=== PATIENT | male | born 1960 | race African-American/Black ===

== ENCOUNTER → 2019-01-31 | Outpatient (CLI) | payer OTHER ==
[~2019-01-31] MED LIST: AMLODIPINE BESYL5 MG PO; ASPIR 8181 MG PO; GARLIC1 EAC1 PO; JANUVIA100 MG PO; LEVOTHYROXINE50 MCG PO; LOSARTAN POTAS100 MG PO; LYRICA50 MG PO; MULTIVITAMINS1 EAC7 PO; ULTRAM 50MG50 MG PO
--- NOTE | 2019-01-31 09:46 | Diagnostic Imaging Report ---
TECHNIQUE: Magnetic resonance imaging of the RIGHT KNEE was performed WITHOUT injected contrast. Motion artifact partially limits sensitivity and specificity of the exam. HISTORY: SPRAIN LATERAL COLLATERAL LIGAMENT , fell, pain, query sprain of lateral collateral ligament COMPARISON: None available. FINDINGS: LIGAMENTS AND TENDONS: ACL: Intact PCL: Intact Collateral ligaments: The medial collateral ligament is intact. Focal increased intrasubstance signal the proximal fibular collateral ligament near the femoral insertion. Iliotibial band: Unremarkable Popliteal tendon: Intact Extensor mechanism: Intact JOINT: Menisci: Medial: Increased intrasubstance degenerative signal of the posterior horn, without a discrete tear extending to an articular surface. Lateral: Severe complex tearing and attenuation of the anterior horn, no normal anterior horn tissue is visible. Marked peripheral extrusion of the body. Diffuse intrasubstance and free margin degenerative tearing of the residual body and posterior horn. Articular Cartilage: Medial Compartment: No focal defect. Lateral Compartment: Full-thickness erosions of the posterior weightbearing cartilage. Patellofemoral Compartment: High-grade to full-thickness erosions of the lateral patellar facet and lateral trochlea. Joint Fluid: Severe synovitis with a moderate nonspecific joint effusion. BONES: No focal or infiltrative bone marrow replacing abnormality. No acute fracture. Reactive subchondral bone marrow edema, most notably adjacent to the lateral compartment. SOFT TISSUES: A 1.5 cm (AP) x 1 cm (ML) x 2.2 cm (CC) lateral popliteal cyst containing numerous subcentimeter ossified bodies. IMPRESSION: 1. 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 Acute on chronic tearing is possible given the provided history. 2. Severe synovitis with associated moderate effusion and popliteal cyst containing multiple ossified bodies migrated from the joint. 3. Mild sprain versus scarring of the proximal fibular collateral ligament. Signed by: Dr. Jovanny Yuen D.O., M.M.M. on 01/31/2019 9:43 AM
== END ==
LOC: MRI 07:40
PROVIDERS: ATTEND Family Medicine
DX: S83.421A Sprain of lateral collateral ligament of right knee, initial encounter (principal)

== ENCOUNTER → 2021-09-15 | Outpatient (CLI) | payer OTHER | LOC: NM 08:42 | PROVIDERS: ATTEND Urology | DX: C61 Malignant neoplasm of prostate (principal) | CPT/HCPCS: 78306; A9503 ==

== ENCOUNTER 2021-11-25 10:39 | Inpatient (IN) | payer OTHER ==
[2021-11-23 12:06] LABS: BASOPHILS % 0.7 % (0.0-1.0); EOSINOPHILS # (AUTO) 0.1 (0.0-0.4); EOSINOPHILS % 1.2 % (0.0-6.0); HEMATOCRIT 44.4 % (38.2-49.6); HEMOGLOBIN 14.1 g/dL (14.0-18.0); LYMPHOCYTES # (AUTO) 1.6 (1.0-3.2); MEAN CORPUSCULAR HEMOGLOBIN 27.9 pg (28-32); MEAN CORPUSCULAR HGB CONC 31.8 g/dL (31-35); MEAN CORPUSCULAR VOLUME 87.7 fL (81-99); MONOCYTES # (AUTO) 0.6 (0.2-0.8); MONOCYTES % 10.8 % (4.4-11.3); NEUTROPHILS # (AUTO) 3.3 (2.1-6.9); NEUTROPHILS % 58.4 % (38.7-80.0); PLATELET COUNT 184 x10e3/uL (140-360); RED BLOOD COUNT 5.06 x10e6/uL (4.3-5.7)
[2021-11-23 12:24] LABS: ANION GAP 13.1 mmol/L (8-16); CALCIUM 9.2 mg/dL (8.4-10.2); CREATININE, SERUM 1.53 mg/dL (0.72-1.25); POTASSIUM 4.1 mmol/L (3.5-5.1)
[~2021-11-25] VITALS: Ht 200.7 cm; Wt 106.1 kg
[2021-11-25] MEDS ORDERED: SODIUM CHLORIDE 0.9% 50ML 100 ML ONE (10:44)
[2021-11-25] MEDS ORDERED: NOVOLOG100 UNIT/1 SC (10:49)
[2021-11-25] MEDS ORDERED: TRESIBA FL100 UNIT/1 SC (10:49)
[2021-11-25] MEDS ORDERED: LOSARTAN POTASS25 MG PO (10:50)
[2021-11-25] MEDS ORDERED: CRESTOR10 MG PO (10:50)
[2021-11-25] MEDS ORDERED: FARXIGA10 MG PO (10:50)
[2021-11-25] MEDS ORDERED: LIDOCAINE HCL 2% LOCAL INJ 5 ML SDV VIAL INJ ONE (12:25)
[2021-11-25] MEDS ORDERED: SEVOFLURANE INHAL SOLN 250 ML PEN BTL ONE (12:25)
[2021-11-25] MEDS ORDERED: POVIDONE IODINE 0.05% 0.05 % ML PO ONE (12:25)
[2021-11-25] MEDS ORDERED: GLYCOPYRROLATE INJ 0.2 MG/ML VIAL ONE (12:25)
[2021-11-25] MEDS ORDERED: ROCURONIUM BROMIDE 10 MG/ML 5ML VIAL IV ONE (12:25)
[2021-11-25] MEDS ORDERED: ONDANSETRON HCL INJ 2MG/ML 2ML 2 MG/ML VIAL ONE (12:25)
[2021-11-25] MEDS ORDERED: PROPOFOL IV EMULSION 10 MG/ML 20 ML VIAL ONE (12:25)
[2021-11-25] MEDS ORDERED: MIDAZOLAM HCL 2 MG/2 ML VIAL ONE (12:59)
[2021-11-25] MEDS ORDERED: FENTANYL CITRATE/PF 100MCG/2 ML INJ ONE (12:59)
[2021-11-25] MEDS ORDERED: NALOXONE HCL INJ 0.4 MG/ML AMP IV PRN (13:30)
[2021-11-25] MEDS ORDERED: ONDANSETRON HCL INJ 2MG/ML 2ML 2 MG/ML VIAL IV PRN ×2 (13:30→17:45)
[2021-11-25] MEDS ORDERED: DIPHENHYDRAMINE HCL INJ 50 MG/ML VIAL IM PRN (13:30)
[2021-11-25] MEDS ORDERED: SUGAMMADEX SODIUM 200 MG/2 ML VIAL IV ONE (14:06)
[2021-11-25] MEDS ORDERED: MEPERIDINE HCL INJ 25 MG/ML VIAL ONE (14:29)
[2021-11-25] MEDS: MORPHINE SULFATE 1 MG/ML 30ML PCA IV PRN (14:30)
[2021-11-25 15:38] LABS: BASOPHILS % 0.3 % (0.0-1.0); EOSINOPHILS % 0.2 % (0.0-6.0); HEMATOCRIT 44.1 % (38.2-49.6); HEMOGLOBIN 13.8 g/dL (14.0-18.0); LYMPHOCYTES # (AUTO) 1.5 (1.0-3.2); LYMPHOCYTES % 15.8 % (18.0-39.1); MEAN CORPUSCULAR HEMOGLOBIN 27.5 pg (28-32); MEAN CORPUSCULAR HGB CONC 31.3 g/dL (31-35); MEAN CORPUSCULAR VOLUME 87.8 fL (81-99); MONOCYTES # (AUTO) 0.8 (0.2-0.8); MONOCYTES % 8.6 % (4.4-11.3); NEUTROPHILS # (AUTO) 7.1 (2.1-6.9); NEUTROPHILS % 74.5 % (38.7-80.0); PLATELET COUNT 171 x10e3/uL (140-360); RED BLOOD COUNT 5.02 x10e6/uL (4.3-5.7); RED CELL DISTRIBUTION WIDTH 16.9 % (11.7-14.4)
[2021-11-25 15:41] VITALS: BP 154/94
[2021-11-25 15:54] LABS: ANION GAP 12.8 mmol/L (8-16); CALCIUM 8.8 mg/dL (8.4-10.2); CREATININE, SERUM 1.42 mg/dL (0.72-1.25); POTASSIUM 3.8 mmol/L (3.5-5.1)
[2021-11-25] MEDS: SOD CHL 0.45%/POT CHL 20MEQ 1,000 ML IV SCH ×2 (16:06→20:46)
[2021-11-25] MEDS: ACETAMINOPHEN 1000 MG/100 ML IV PRN (16:14)
[2021-11-25 16:18] VITALS: BP 154/94
[2021-11-25] MEDS ORDERED: ACETAMINOPHEN 325 MG SUPP PR PRN (17:45)
[2021-11-25] MEDS ORDERED: HYDRALAZINE HCL 20 MG/ML VIAL IV PRN (17:45)
[2021-11-25] MEDS: Cefazolin 1 GM in SODIUM CHLORIDE 0.9% 50ML 50 ML IV SCH (20:30)
[2021-11-25 20:38] VITALS: BP 118/82
[2021-11-25] MEDS: SIMVASTATIN 20 MG TAB PO SCH (20:46)
[2021-11-25 21:00] VITALS: BP 118/82
[2021-11-26] VITALS (7 sets, daily range): BP systolic 109–133; BP diastolic 68–91
[2021-11-26] MEDS: MORPHINE SULFATE 1 MG/ML 30ML PCA IV PRN (01:29)
[2021-11-26] MEDS: ACETAMINOPHEN 1000 MG/100 ML IV PRN (01:45)
[2021-11-26] MEDS: Cefazolin 1 GM in SODIUM CHLORIDE 0.9% 50ML 50 ML IV SCH ×3 (04:54→20:24)
[2021-11-26] MEDS: SOD CHL 0.45%/POT CHL 20MEQ 1,000 ML IV SCH ×3 (04:55→20:24)
[2021-11-26 06:48] LABS: BASOPHILS % 0.5 % (0.0-1.0); EOSINOPHILS # (AUTO) 0.1 (0.0-0.4); EOSINOPHILS % 0.9 % (0.0-6.0); HEMATOCRIT 40.2 % (38.2-49.6); HEMOGLOBIN 12.6 g/dL (14.0-18.0); LYMPHOCYTES # (AUTO) 1.8 (1.0-3.2); LYMPHOCYTES % 23.1 % (18.0-39.1); MEAN CORPUSCULAR HEMOGLOBIN 27.6 pg (28-32); MEAN CORPUSCULAR HGB CONC 31.3 g/dL (31-35); MONOCYTES % 12.9 % (4.4-11.3); NEUTROPHILS # (AUTO) 4.8 (2.1-6.9); NEUTROPHILS % 62.1 % (38.7-80.0); PLATELET COUNT 157 x10e3/uL (140-360); RED BLOOD COUNT 4.57 x10e6/uL (4.3-5.7); RED CELL DISTRIBUTION WIDTH 16.8 % (11.7-14.4)
[2021-11-26 07:08] LABS: ANION GAP 11.6 mmol/L (8-16); CALCIUM 8.4 mg/dL (8.4-10.2); CREATININE, SERUM 1.37 mg/dL (0.72-1.25); POTASSIUM 4.6 mmol/L (3.5-5.1)
[2021-11-26 07:11] LABS: CHOL/HDL RATIO 4.5 (3.9-4.7); MAGNESIUM 1.7 MG/DL (1.3-2.1); PHOSPHORUS 2.9 MG/DL (2.3-4.7)
[2021-11-26 07:30] LABS: THYROID STIMULATING HORMONE 3.217 uIU/mL (0.350-4.940)
[2021-11-26] MEDS: FAMOTIDINE 20 MG/2 ML VIAL IV SCH ×2 (08:51→17:26)
[2021-11-26] MEDS: ASPIRIN 81 MG CHEW TAB PO SCH (08:51)
[2021-11-26] MEDS: LOSARTAN POTASSIUM 25 MG TAB PO SCH (08:52)
[2021-11-26] MEDS ORDERED: NON-FORMULARY MEDICATION (Dapagliflozin Propanediol (Farxiga) 10 MG) PO SCH (09:00)
[2021-11-26] MEDS ORDERED: MORPHINE SULFATE 1 MG/ML 30ML PCA IV PRN (12:30)
[2021-11-26] MEDS: SIMVASTATIN 20 MG TAB PO SCH (20:24)
[2021-11-27] VITALS (8 sets, daily range): BP systolic 122–150; BP diastolic 81–92
[2021-11-27] MEDS: Cefazolin 1 GM in SODIUM CHLORIDE 0.9% 50ML 50 ML IV SCH ×3 (04:12→20:30)
[2021-11-27] MEDS: SOD CHL 0.45%/POT CHL 20MEQ 1,000 ML IV SCH ×2 (04:40→14:42)
[2021-11-27 06:25] LABS: BASOPHILS % 0.5 % (0.0-1.0); EOSINOPHILS # (AUTO) 0.1 (0.0-0.4); EOSINOPHILS % 0.9 % (0.0-6.0); HEMATOCRIT 45.9 % (38.2-49.6); HEMOGLOBIN 14.4 g/dL (14.0-18.0); LYMPHOCYTES # (AUTO) 1.4 (1.0-3.2); LYMPHOCYTES % 17.3 % (18.0-39.1); MEAN CORPUSCULAR HEMOGLOBIN 27.5 pg (28-32); MEAN CORPUSCULAR HGB CONC 31.4 g/dL (31-35); MEAN CORPUSCULAR VOLUME 87.6 fL (81-99); MONOCYTES # (AUTO) 1.4 (0.2-0.8); MONOCYTES % 17.6 % (4.4-11.3); NEUTROPHILS # (AUTO) 5.1 (2.1-6.9); NEUTROPHILS % 63.1 % (38.7-80.0); PLATELET COUNT 171 x10e3/uL (140-360); RED BLOOD COUNT 5.24 x10e6/uL (4.3-5.7)
[2021-11-27 06:42] LABS: ANION GAP 14.1 mmol/L (8-16); CREATININE, SERUM 1.22 mg/dL (0.72-1.25); POTASSIUM 4.1 mmol/L (3.5-5.1)
[2021-11-27] MEDS: LOSARTAN POTASSIUM 25 MG TAB PO SCH (08:48)
[2021-11-27] MEDS: ASPIRIN 81 MG CHEW TAB PO SCH (08:49)
[2021-11-27] MEDS: FAMOTIDINE 20 MG/2 ML VIAL IV SCH ×2 (08:50→17:32)
[2021-11-27] MEDS: ACETAMINOPHEN/CODEINE 300MG - 30MG TAB PO PRN ×2 (14:30→20:39)
[2021-11-27] MEDS: DOCUSATE SODIUM 100 MG CAP PO SCH (17:32)
[2021-11-27] MEDS: ASCORBIC ACID 500 MG TAB PO SCH (17:33)
[2021-11-27] MEDS: OYST-CAL-D 500MG TABLET PO SCH (17:33)
[2021-11-27] MEDS: MAGNESIUM OXIDE 400 MG TAB PO SCH (17:33)
[2021-11-27] MEDS: ZINC SULFATE 220 MG CAP PO SCH (17:34)
[2021-11-27] MEDS: SIMVASTATIN 20 MG TAB PO SCH (20:39)
[2021-11-28 00:54] VITALS: BP 122/91
[2021-11-28] MEDS: SOD CHL 0.45%/POT CHL 20MEQ 1,000 ML IV SCH (03:08)
[2021-11-28 04:00] VITALS: BP 133/90
[2021-11-28] MEDS: Cefazolin 1 GM in SODIUM CHLORIDE 0.9% 50ML 50 ML IV SCH ×2 (04:19→12:00)
[2021-11-28] MEDS: ACETAMINOPHEN/CODEINE 300MG - 30MG TAB PO PRN ×2 (04:19→08:09)
[2021-11-28 05:55] LABS: BASOPHILS % 0.3 % (0.0-1.0); EOSINOPHILS # (AUTO) 0.2 (0.0-0.4); EOSINOPHILS % 2.3 % (0.0-6.0); HEMATOCRIT 42.8 % (38.2-49.6); LYMPHOCYTES # (AUTO) 1.2 (1.0-3.2); LYMPHOCYTES % 16.5 % (18.0-39.1); MEAN CORPUSCULAR HEMOGLOBIN 27.8 pg (28-32); MEAN CORPUSCULAR HGB CONC 32.7 g/dL (31-35); MEAN CORPUSCULAR VOLUME 84.9 fL (81-99); MONOCYTES # (AUTO) 1.4 (0.2-0.8); MONOCYTES % 18.5 % (4.4-11.3); NEUTROPHILS # (AUTO) 4.6 (2.1-6.9); NEUTROPHILS % 61.6 % (38.7-80.0); PLATELET COUNT 166 x10e3/uL (140-360); RED BLOOD COUNT 5.04 x10e6/uL (4.3-5.7); RED CELL DISTRIBUTION WIDTH 16.9 % (11.7-14.4)
[2021-11-28 06:48] LABS: ALBUMIN/GLOBULIN RATIO 0.8 (0.8-2.0); ANION GAP 14.3 mmol/L (8-16); CALCIUM 9.2 mg/dL (8.4-10.2); CREATININE, SERUM 1.3 mg/dL (0.72-1.25); MAGNESIUM 1.8 MG/DL (1.3-2.1); POTASSIUM 4.3 mmol/L (3.5-5.1)
[2021-11-28 07:27] VITALS: BP 133/94
[2021-11-28] MEDS ORDERED: ONDANSETRON HCL 4 MG ORAL DISINTEGRATING TAB PO PRN (08:00)
[2021-11-28] MEDS: ASPIRIN 81 MG CHEW TAB PO SCH (08:08)
[2021-11-28] MEDS: DOCUSATE SODIUM 100 MG CAP PO SCH (08:08)
[2021-11-28] MEDS: ASCORBIC ACID 500 MG TAB PO SCH (08:09)
[2021-11-28] MEDS: OYST-CAL-D 500MG TABLET PO SCH (08:09)
[2021-11-28] MEDS: LOSARTAN POTASSIUM 25 MG TAB PO SCH (08:09)
[2021-11-28] MEDS: MAGNESIUM OXIDE 400 MG TAB PO SCH (08:09)
[2021-11-28] MEDS: ZINC SULFATE 220 MG CAP PO SCH (08:09)
[2021-11-28] MEDS: FAMOTIDINE 20 MG/2 ML VIAL IV SCH (08:09)
[2021-11-28 08:27] VITALS: BP 133/94
[2021-11-28] MEDS ORDERED: MULTIVITAMINS/MINERALS TAB PO SCH (09:00)
[2021-11-28] MEDS ORDERED: FAMOTIDINE 20 MG TAB PO SCH (09:00)
[2021-11-28 11:08] VITALS: BP 112/75
[2021-11-28] MEDS ORDERED: tylenol #3 PO (11:45)
== END 2021-11-28 12:43 | disposition home or self-care (01) | DRG 708 ==
LOC: OR 10:39 → PACU V 14:17 → MED/SURG 15:12
PROVIDERS: ADMIT Internal Medicine; ATTEND Internal Medicine
PROC: 0TJB8ZZ Inspection of Bladder, Via Natural or Artificial Opening Endoscopic (ICD-10-PCS; principal; 2021-11-25 12:10)
PROC: 07TC0ZZ Resection of Pelvis Lymphatic, Open Approach (ICD-10-PCS; 2021-11-25 12:10)
DX: C61 Malignant neoplasm of prostate (principal); E86.0 Dehydration; E11.65 Type 2 diabetes mellitus with hyperglycemia; E78.5 Hyperlipidemia, unspecified; E83.42 Hypomagnesemia; E11.22 Type 2 diabetes mellitus with diabetic chronic kidney disease; I12.9 Hypertensive chronic kidney disease with stage 1 through stage 4 chronic kidney disease, or unspecified chronic kidney disease; N18.9 Chronic kidney disease, unspecified; Z79.82 Long term (current) use of aspirin; Z79.4 Long term (current) use of insulin; Z20.822 Contact with and (suspected) exposure to COVID-19; Z80.1 Family history of malignant neoplasm of trachea, bronchus and lung; Z80.0 Family history of malignant neoplasm of digestive organs; Z81.2 Family history of tobacco abuse and dependence
CPT/HCPCS: 36415; 80048; 80053; 80061; 82948; 83036; 83735; 84100; 84443; 85025; 86850; 86900; 88305; 93005; 94799; 96361; J0690; J2001; J2175; J2250; J2270; J2405; J3010; U0002

== ENCOUNTER 2022-04-24 09:54 | Inpatient (IN) | payer OTHER ==
[2022-04-20 12:36] LABS: ANION GAP 11.2 mmol/L (8-16); CALCIUM 8.8 mg/dL (8.4-10.2); CREATININE, SERUM 1.27 mg/dL (0.72-1.25); POTASSIUM 4.2 mmol/L (3.5-5.1)
[2022-04-20 13:03] LABS: BASOPHILS % 0.5 % (0.0-1.0); EOSINOPHILS # (AUTO) 0.1 (0.0-0.4); EOSINOPHILS % 1.3 % (0.0-6.0); HEMATOCRIT 42.7 % (38.2-49.6); HEMOGLOBIN 13.8 g/dL (14.0-18.0); LYMPHOCYTES # (AUTO) 1.4 (1.0-3.2); LYMPHOCYTES % 25.7 % (18.0-39.1); MEAN CORPUSCULAR HEMOGLOBIN 27.8 pg (28-32); MEAN CORPUSCULAR HGB CONC 32.3 g/dL (31-35); MEAN CORPUSCULAR VOLUME 86.1 fL (81-99); MONOCYTES # (AUTO) 0.6 (0.2-0.8); MONOCYTES % 11.6 % (4.4-11.3); NEUTROPHILS # (AUTO) 3.3 (2.1-6.9); PLATELET COUNT 176 x10e3/uL (140-360); RED BLOOD COUNT 4.96 x10e6/uL (4.3-5.7); RED CELL DISTRIBUTION WIDTH 17.5 % (11.7-14.4)
[~2022-04-24] VITALS: Ht 200.7 cm; Wt 108.9 kg
[2022-04-24] MEDS: SOD CHL 0.45%/POT CHL 20MEQ 1,000 ML IV SCH ×2 (02:00→17:09)
[~2022-04-24 09:54] MED LIST changes: +CRESTOR10 MG PO; +FARXIGA10 MG PO; +LOSARTAN POTASS25 MG PO; +NOVOLOG100 UNIT/1 SC; +TRESIBA FL100 UNIT/1 SC; +TYLENOL325 MG PO; +XIGDUO XR 10 M1 EAC1 PO; +tylenol #3 PO
[2022-04-24] MEDS ORDERED: GENTAMICIN 80MG/NS 100 ML 200 ML IV ONE (10:24)
[2022-04-24] MEDS ORDERED: PROPOFOL IV EMULSION 10 MG/ML 20 ML VIAL ONE (12:33)
[2022-04-24] MEDS ORDERED: ONDANSETRON HCL INJ 2MG/ML 2ML 2 MG/ML VIAL ONE (12:33)
[2022-04-24] MEDS ORDERED: ATROPINE SULFATE 1 MG/ML VIAL ONE (12:33)
[2022-04-24] MEDS ORDERED: LIDOCAINE HCL 2% LOCAL INJ 5 ML SDV VIAL INJ ONE (12:33)
[2022-04-24] MEDS ORDERED: GLYCOPYRROLATE INJ 0.2 MG/ML VIAL ONE (12:33)
[2022-04-24] MEDS ORDERED: ACETAMINOPHEN 1000 MG/100 ML IV ONE (12:33)
[2022-04-24] MEDS ORDERED: POVIDONE IODINE 0.05% 0.05 % ML PO ONE (12:33)
[2022-04-24] MEDS ORDERED: SEVOFLURANE INHAL SOLN 250 ML PEN BTL ONE (12:33)
[2022-04-24] MEDS ORDERED: ROCURONIUM BROMIDE 10 MG/ML 5ML VIAL IV ONE (12:33)
[2022-04-24] MEDS ORDERED: NEOSTIGMINE 1 MG/ML 10ML VIAL ONE (12:33)
[2022-04-24] MEDS ORDERED: INDIGOTINDISULFONATE SODIUM 8 MG/ML AMP IJ ONE (13:14)
[2022-04-24] MEDS ORDERED: FENTANYL CITRATE/PF 100MCG/2 ML INJ ONE (14:00)
[2022-04-24] MEDS ORDERED: MIDAZOLAM HCL 2 MG/2 ML VIAL ONE (14:00)
[2022-04-24] MEDS ORDERED: ACETAMINOPHEN/CODEINE 300MG - 30MG TAB PO PRN (14:45)
[2022-04-24] MEDS ORDERED: ONDANSETRON HCL INJ 2MG/ML 2ML 2 MG/ML VIAL IV PRN (14:45)
[2022-04-24] MEDS ORDERED: NALOXONE HCL INJ 0.4 MG/ML AMP IV PRN (14:45)
[2022-04-24] MEDS ORDERED: DIPHENHYDRAMINE HCL 25 MG CAP PO PRN (14:45)
[2022-04-24] MEDS ORDERED: PHENAZOPYRIDINE HCL 100 MG TAB PO PRN (14:45)
[2022-04-24] MEDS ORDERED: MEPERIDINE HCL INJ 25 MG/ML VIAL ONE (14:47)
[2022-04-24] MEDS: MORPHINE SULFATE 1 MG/ML 30ML PCA IV PRN (14:50)
[2022-04-24 15:09] LABS: BASOPHILS # (AUTO) 0.1 (0.0-0.1); BASOPHILS % 0.4 % (0.0-1.0); EOSINOPHILS # (AUTO) 0.1 (0.0-0.4); EOSINOPHILS % 0.4 % (0.0-6.0); HEMOGLOBIN 14.2 g/dL (14.0-18.0); LYMPHOCYTES % 19.3 % (18.0-39.1); MEAN CORPUSCULAR HEMOGLOBIN 27.3 pg (28-32); MEAN CORPUSCULAR HGB CONC 30.9 g/dL (31-35); MEAN CORPUSCULAR VOLUME 88.5 fL (81-99); MONOCYTES # (AUTO) 1.3 (0.2-0.8); MONOCYTES % 8.3 % (4.4-11.3); NEUTROPHILS % 70.6 % (38.7-80.0); PLATELET COUNT 197 x10e3/uL (140-360); RED CELL DISTRIBUTION WIDTH 18.5 % (11.7-14.4)
[2022-04-24 15:24] LABS: ANION GAP 16.6 mmol/L (8-16); CALCIUM 8.3 mg/dL (8.4-10.2); CREATININE, SERUM 1.41 mg/dL (0.72-1.25); POTASSIUM 3.6 mmol/L (3.5-5.1)
[2022-04-24 16:00] VITALS: BP 134/76
[2022-04-24] MEDS: DOCUSATE SODIUM 100 MG CAP PO SCH (17:09)
[2022-04-24] MEDS ORDERED: ACETAMINOPHEN 1000 MG/100 ML IV PRN (18:00)
[2022-04-24] MEDS ORDERED: HYDRALAZINE HCL 20 MG/ML VIAL IV PRN (21:30)
[2022-04-24] MEDS ORDERED: ACETAMINOPHEN 325 MG TAB PO PRN (21:30)
[2022-04-24] MEDS ORDERED: POLYETHYLENE GLYCOL 3350 17 GM PACK PO PRN (21:30)
[2022-04-25 04:57] LABS: BASOPHILS % 0.2 % (0.0-1.0); EOSINOPHILS % 0.1 % (0.0-6.0); HEMATOCRIT 35.6 % (38.2-49.6); HEMOGLOBIN 11.3 g/dL (14.0-18.0); LYMPHOCYTES # (AUTO) 1.3 (1.0-3.2); LYMPHOCYTES % 11.8 % (18.0-39.1); MEAN CORPUSCULAR HEMOGLOBIN 27.3 pg (28-32); MEAN CORPUSCULAR HGB CONC 31.7 g/dL (31-35); MONOCYTES # (AUTO) 1.5 (0.2-0.8); MONOCYTES % 13.2 % (4.4-11.3); NEUTROPHILS # (AUTO) 8.3 (2.1-6.9); NEUTROPHILS % 74.4 % (38.7-80.0); PLATELET COUNT 152 x10e3/uL (140-360); RED BLOOD COUNT 4.14 x10e6/uL (4.3-5.7); RED CELL DISTRIBUTION WIDTH 17.6 % (11.7-14.4)
[2022-04-25 05:47] LABS: MAGNESIUM 1.4 MG/DL (1.3-2.1); PHOSPHORUS 2.6 MG/DL (2.3-4.7)
[2022-04-25 08:05] LABS: ANION GAP 12.5 mmol/L (8-16); CALCIUM 7.7 mg/dL (8.4-10.2); CREATININE, SERUM 1.37 mg/dL (0.72-1.25); POTASSIUM 4.5 mmol/L (3.5-5.1)
[2022-04-25] MEDS ORDERED: MAGNESIUM SULFATE 2GM/50ML 50 ML IV ONE (08:30)
[2022-04-25 08:36] VITALS: BP 113/73
[2022-04-25] MEDS ORDERED: SODIUM CHLORIDE 0.9% 250ML 250 ML ONE (09:07)
[2022-04-25] MEDS: FAMOTIDINE 20 MG/2 ML VIAL IV SCH ×2 (09:29→18:43)
[2022-04-25] MEDS: DOCUSATE SODIUM 100 MG CAP PO SCH ×2 (09:29→18:43)
[2022-04-25] MEDS: SOD CHL 0.45%/POT CHL 20MEQ 1,000 ML IV SCH ×2 (09:30→15:11)
[2022-04-25] MEDS ORDERED: MAGNESIUM SULF 1GRAM/DEXTROSE 100 ML IV ONE (10:30)
[2022-04-25 12:06] VITALS: BP 106/64
[2022-04-25 16:00] VITALS: BP 114/71
[2022-04-25] MEDS: MORPHINE SULFATE 1 MG/ML 30ML PCA IV PRN (18:47)
[2022-04-25 20:00] VITALS: BP_SYST 103; BP_SYST 112; BP_DIAS 53; BP_DIAS 68
[2022-04-25 20:33] VITALS: BP 103/63
[2022-04-26] VITALS (10 sets, daily range): BP systolic 107–118; BP diastolic 67–82
[2022-04-26] MEDS: SOD CHL 0.45%/POT CHL 20MEQ 1,000 ML IV SCH ×3 (02:22→17:20)
[2022-04-26 04:58] LABS: BASOPHILS % 0.4 % (0.0-1.0); EOSINOPHILS # (AUTO) 0.1 (0.0-0.4); EOSINOPHILS % 1.1 % (0.0-6.0); HEMATOCRIT 37.6 % (38.2-49.6); HEMOGLOBIN 11.9 g/dL (14.0-18.0); LYMPHOCYTES # (AUTO) 1.3 (1.0-3.2); LYMPHOCYTES % 15.9 % (18.0-39.1); MEAN CORPUSCULAR HEMOGLOBIN 27.4 pg (28-32); MEAN CORPUSCULAR HGB CONC 31.6 g/dL (31-35); MEAN CORPUSCULAR VOLUME 86.6 fL (81-99); MONOCYTES # (AUTO) 1.4 (0.2-0.8); MONOCYTES % 16.4 % (4.4-11.3); NEUTROPHILS # (AUTO) 5.5 (2.1-6.9); NEUTROPHILS % 65.8 % (38.7-80.0); PLATELET COUNT 168 x10e3/uL (140-360); RED BLOOD COUNT 4.34 x10e6/uL (4.3-5.7)
[2022-04-26 05:16] LABS: ANION GAP 11.7 mmol/L (8-16); CALCIUM 8.1 mg/dL (8.4-10.2); CREATININE, SERUM 1.6 mg/dL (0.72-1.25); POTASSIUM 4.7 mmol/L (3.5-5.1)
[2022-04-26 06:07] LABS: MAGNESIUM 2.1 MG/DL (1.3-2.1); PHOSPHORUS 2.5 MG/DL (2.3-4.7)
[2022-04-26] MEDS: FAMOTIDINE 20 MG/2 ML VIAL IV SCH ×2 (09:14→17:33)
[2022-04-26] MEDS: DOCUSATE SODIUM 100 MG CAP PO SCH ×2 (09:14→17:33)
[2022-04-26 12:33] LABS: CLARITY,URINE SL CLOUDY (CLEAR); COLOR,URINE ORANGE (YELLOW); KETONES,URINE NEGATIVE (NEGATIVE); LEUKOCYTE ESTERASE ,URINE NEGATIVE (NEGATIVE); NITRITE,URINE NEGATIVE (NEGATIVE); PROTEIN,URINE DIPSTICK NEGATIVE (NEGATIVE); URINE UROBILINOGEN 0.2 mg/dL (0.2 - 1)
[2022-04-26 12:39] LABS: RBC,URINE >50 /HPF (0-5)
[2022-04-26 12:40] LABS: BACTERIA,URINE RARE /HPF; EPITHELIAL CELLS,URINE RARE /LPF; WBC,URINE (MAN) 0-5 /HPF (0-5)
[2022-04-26 13:14] LABS: CREATININE,URINE RANDOM 60.22 mg/dL (63-166); SODIUM,URINE 168 mmol/L
[2022-04-26] MEDS ORDERED: HYDROCODONE/APAP 5MG-325MG TAB PO PRN (21:15)
[2022-04-26] MEDS ORDERED: BISACODYL 5 MG TAB EC PO PRN (21:15)
[2022-04-26] MEDS: SODIUM CHLORIDE 0.45% 1,000 ML IV SCH (21:52)
[2022-04-27] VITALS (7 sets, daily range): BP systolic 108–117; BP diastolic 68–82
[2022-04-27] MEDS ORDERED: PIPERACILLIN/TAZOBACTAM 3.375 GM VIAL ONE (03:41)
[2022-04-27 04:59] LABS: BASOPHILS % 0.4 % (0.0-1.0); EOSINOPHILS # (AUTO) 0.2 (0.0-0.4); EOSINOPHILS % 2.8 % (0.0-6.0); HEMATOCRIT 36.5 % (38.2-49.6); HEMOGLOBIN 11.7 g/dL (14.0-18.0); LYMPHOCYTES # (AUTO) 1.5 (1.0-3.2); LYMPHOCYTES % 20.7 % (18.0-39.1); MEAN CORPUSCULAR HEMOGLOBIN 27.4 pg (28-32); MEAN CORPUSCULAR HGB CONC 32.1 g/dL (31-35); MEAN CORPUSCULAR VOLUME 85.5 fL (81-99); MONOCYTES # (AUTO) 1.1 (0.2-0.8); MONOCYTES % 14.9 % (4.4-11.3); NEUTROPHILS # (AUTO) 4.4 (2.1-6.9); PLATELET COUNT 169 x10e3/uL (140-360); RED BLOOD COUNT 4.27 x10e6/uL (4.3-5.7); RED CELL DISTRIBUTION WIDTH 17.5 % (11.7-14.4)
[2022-04-27 05:19] LABS: ALBUMIN 2.8 g/dL (3.5-5.0); ALBUMIN/GLOBULIN RATIO 0.8 (0.8-2.0); ANION GAP 12.3 mmol/L (8-16); CALCIUM 8.1 mg/dL (8.4-10.2); CREATININE, SERUM 1.41 mg/dL (0.72-1.25); MAGNESIUM 1.9 MG/DL (1.3-2.1); PHOSPHORUS 2.9 MG/DL (2.3-4.7); POTASSIUM 4.3 mmol/L (3.5-5.1)
[2022-04-27] MEDS: SODIUM CHLORIDE 0.45% 1,000 ML IV SCH (05:41)
[2022-04-27] MEDS ORDERED: DOCUSATE SODIUM 100 MG CAP PO SCH (09:00)
[2022-04-27] MEDS ORDERED: LOSARTAN POTASSIUM 25 MG TAB PO SCH (09:00)
[2022-04-27] MEDS ORDERED: ASPIRIN 81 MG CHEW TAB PO SCH (09:00)
[2022-04-27] MEDS ORDERED: POLYETHYLENE GLYCOL 3350 17 GM PACK PO SCH (09:00)
[2022-04-27] MEDS: FAMOTIDINE 20 MG/2 ML VIAL IV SCH (10:46)
[2022-04-27] MEDS ORDERED: Acetaminophen/Codeine 300-30MG PO (13:59)
[2022-04-27] MEDS ORDERED: Docusate Sodium PO (13:59)
[2022-04-27] MEDS ORDERED: LEVOFLOXACIN250 MG PO (13:59)
[2022-04-27] MEDS ORDERED: BISACODYL5 MG PO (13:59)
[2022-04-27] MEDS ORDERED: Diphenhydramine Hcl PO (13:59)
[2022-04-27] MEDS ORDERED: MIRALAX17 GM PO (13:59)
[2022-04-27] MEDS ORDERED: ACETAMINOPHEN325 M1 PO (13:59)
== END 2022-04-27 14:21 | disposition home or self-care (01) | DRG 707 ==
LOC: OR 09:54 → PACU V 14:39 → MED/SURG 16:00
PROVIDERS: ADMIT Internal Medicine; ATTEND Internal Medicine
PROC: 0VT00ZZ Resection of Prostate, Open Approach (ICD-10-PCS; principal; 2022-04-24 12:12)
DX: C61 Malignant neoplasm of prostate (principal); E87.3 Alkalosis; N17.9 Acute kidney failure, unspecified; I12.9 Hypertensive chronic kidney disease with stage 1 through stage 4 chronic kidney disease, or unspecified chronic kidney disease; E11.22 Type 2 diabetes mellitus with diabetic chronic kidney disease; E11.65 Type 2 diabetes mellitus with hyperglycemia; N18.9 Chronic kidney disease, unspecified; Z79.899 Other long term (current) drug therapy; E78.5 Hyperlipidemia, unspecified; E86.0 Dehydration; N18.30 Chronic kidney disease, stage 3 unspecified; Z20.822 Contact with and (suspected) exposure to COVID-19
CPT/HCPCS: 0223U; 36415; 76770; 80048; 80053; 81001; 82550; 82570; 82948; 83735; 84100; 84300; 85025; 86850; 86900; 88307; 88309; 93005; 94799; C1713; J0461; J0690; J1580; J2001; J2175; J2250; J2270; J2405; J2543; J2710; J3010; J3475; J7050

== ENCOUNTER 2022-05-19 15:01 | Outpatient (RCR) | payer OTHER ==
[~2022-05-19 15:01] MED LIST changes: +ACETAMINOPHEN325 M1 PO; +Acetaminophen/Codeine 300-30MG PO; +BISACODYL5 MG PO; +CEFDINIR300 MG PO; +DIFLUCAN100 MG PO; +Diphenhydramine Hcl PO; +Docusate Sodium PO; +FLAGYL375 MG PO; +JANUVIA50 MG PO; +LEVOFLOXACIN250 MG PO; +MIRALAX17 GM PO
[2022-05-19] MEDS ORDERED: LIDOCAINE VISC 2% SOLN 15 ML UDC ONE (16:02)
== END 2022-05-28 ==
LOC: WCC 15:01
PROVIDERS: ATTEND Internal Medicine Infectious Disease
DX: T81.89XA Other complications of procedures, not elsewhere classified, initial encounter (principal); L76.82 Other postprocedural complications of skin and subcutaneous tissue; E11.22 Type 2 diabetes mellitus with diabetic chronic kidney disease; E11.8 Type 2 diabetes mellitus with unspecified complications; K62.5 Hemorrhage of anus and rectum; N18.9 Chronic kidney disease, unspecified; I12.9 Hypertensive chronic kidney disease with stage 1 through stage 4 chronic kidney disease, or unspecified chronic kidney disease; I10 Essential (primary) hypertension; E78.5 Hyperlipidemia, unspecified; N42.89 Other specified disorders of prostate; Z85.46 Personal history of malignant neoplasm of prostate; Z90.79 Acquired absence of other genital organ(s)

== ENCOUNTER 2022-06-12 11:33 | Outpatient (RCR) | payer OTHER ==
[~2022-06-12 11:33] MED LIST changes: +LIDOCAINE VISC 2% SOLN 15 ML UDC ONE; +LIDOCAINE/PRILOCAINE 2.5-2.5% KIT ONE
== END 2022-06-28 ==
LOC: WCC 11:33
PROVIDERS: ATTEND Internal Medicine Infectious Disease
DX: T81.89XA Other complications of procedures, not elsewhere classified, initial encounter (principal); L76.82 Other postprocedural complications of skin and subcutaneous tissue; E11.22 Type 2 diabetes mellitus with diabetic chronic kidney disease; E11.8 Type 2 diabetes mellitus with unspecified complications; K62.5 Hemorrhage of anus and rectum; N18.9 Chronic kidney disease, unspecified; I12.9 Hypertensive chronic kidney disease with stage 1 through stage 4 chronic kidney disease, or unspecified chronic kidney disease; I10 Essential (primary) hypertension; E78.5 Hyperlipidemia, unspecified; N42.89 Other specified disorders of prostate; Z85.46 Personal history of malignant neoplasm of prostate; Z90.79 Acquired absence of other genital organ(s)